=== PATIENT | male | born 1965 | race African-American/Black ===

== ENCOUNTER 2021-12-20 22:53 | Emergency (ER) | payer MEDICAID ==
[~2021-12-20] VITALS: Ht 172.7 cm; Wt 78.0 kg
[2021-12-21] MEDS ORDERED: TETANUS, DIPHTHERIA, PERTUSSIS VAC/PF 0.5ML (>10YR OLD) IM ONE (00:30)
[2021-12-21] MEDS ORDERED: HYDROCODONE/ACETAMINOPHEN 5/325MG TABLET PO ONE (00:30)
[2021-12-21] MEDS ORDERED: CHLORHEXIDINE GLUCONATE 0.12% MOUTHWASH UDC SSP SCH (00:30)
[2021-12-21] MEDS ORDERED: IBUP-2030 MT (02:14)
[2021-12-21] MEDS ORDERED: CHLO473M2 MT (02:14)
[2021-12-21 05:45] VITALS: BP 140/80
== END 2021-12-21 05:49 | disposition home or self-care (01) ==
LOC: ER 22:53
DX: S02.31XA Fracture of orbital floor, right side, initial encounter for closed fracture (principal); Y08.89XA Assault by other specified means, initial encounter; Y93.89 Activity, other specified; Y92.89 Other specified places as the place of occurrence of the external cause; Y99.8 Other external cause status
CPT/HCPCS: 12011; 70486; 90471; 90715; 99284